=== PATIENT | female | born 1985 | race Caucasian/White ===

== ENCOUNTER → 2019-02-02 08:18 | Outpatient (CLI) | payer OTHER, SELFPAY ==
--- NOTE | 2019-02-02 | DI.MRI.S_ITS ---
PROCEDURE: MR LUMBAR SPINE WO CON INDICATIONS: Low back pain TECHNIQUE: Noncontrast sagittal T1 spin echo and T2 fast echo, sagittal STIR, axial T1 and T2 fast spin echo through the lumbar spine. In cases with scoliosis, additional coronal T2 fast spin echo may be performed. COMPARISON: None. FINDINGS: Image quality: Excellent. Alignment and Curvature: There is normal bony alignment. Bone Marrow: Marrow is of normal overall signal. No acute vertebral body compression fractures. Spinal Cord: Conus medullaris terminates at the L1-L2 level. Visualized cord demonstrates normal signal and size. Paraspinous Soft Tissues: No paravertebral masses. L1-L2: Normal appearance. L2-L3: Normal appearance. L3-L4: Normal appearance. L4-L5: Normal appearance. L5-S1: Normal appearance. IMPRESSION: Almost lumbar spine MRI exam. Dictated by: Eliseo Fish M.D. on 02/02/2019 at 10:25 Approved by: Eliseo Fish M.D. on 02/02/2019 at 18:52
== END ==
DX: M54.5 Low back pain (principal)
CPT/HCPCS: 72148